=== PATIENT | male | born 1940 | race Caucasian/White ===

== ENCOUNTER → 2016-12-04 | Outpatient (REF) | payer MEDICARE ==
[2016-12-06 14:34] LABS: PSA TOTAL 1.9 ng/mL (0.0-4.0)
== END ==
LOC: M LABDRAW1 17:02
PROVIDERS: ATTEND Urology
DX: R97.20 Elevated prostate specific antigen [PSA] (principal)

== ENCOUNTER → 2017-12-24 | Outpatient (CLI) | payer MEDICARE ==
[2017-12-24 19:49] LABS: PROSTATIC SPECIFIC AG MONITOR 2.24 NG/ML (< 4.0)
== END ==
LOC: M WUC 11:57
DX: R97.20 Elevated prostate specific antigen [PSA] (principal)
CPT/HCPCS: 84153

== ENCOUNTER → 2018-01-13 | Outpatient (CLI) | payer MEDICARE | LOC: M SMT 11:05 | DX: N50.9 Disorder of male genital organs, unspecified (principal) | CPT/HCPCS: 76870 ==

== ENCOUNTER 2018-03-15 05:54 | Day surgery (SDC) | payer MEDICARE ==
[2018-03-15] MEDS: LR 1,000 ML IV (06:30)
[2018-03-15] MEDS ORDERED: PROPOFOL 200 MG/20 ML VIAL As Ordered (07:07)
[2018-03-15] MEDS ORDERED: LIDOCAINE 2% INJ 100 MG/5 ML SDV (FOR ANES.) As Ordered (07:07)
[2018-03-15] MEDS ORDERED: MIDAZOLAM INJ 2 MG/2 ML VIAL (J2250) As Ordered (07:08)
[2018-03-15] MEDS ORDERED: fentaNYL 100 MCG/2 ML INJECTION (J3010) As Ordered (07:08)
[2018-03-15] MEDS: BUPIVACAINE HCL 0.25% 30 ML VIAL As Ordered (07:52)
[2018-03-15] MEDS: BACITRACIN OINT 30GM As Ordered (07:52)
[2018-03-15] MEDS: LIDOCAINE 1% SDV INJ 30 ML VIAL As Ordered (07:52)
[2018-03-15] MEDS ORDERED: ePHEDrine SULFATE 25 MG/5 ML(5MG/ML) SYRINGE As Ordered (08:00)
[2018-03-15] MEDS ORDERED: fentaNYL 100 MCG/2 ML INJECTION (J3010) IV (09:30)
[2018-03-15] MEDS ORDERED: NORCO, ANEXSIA 5/325MG TABLET (HYDROcodone/ACETAMINOPHEN) PO (09:30)
[2018-03-15] MEDS ORDERED: LR 1,000 ML IV (09:30)
[2018-03-15] MEDS ORDERED: PERCOCET 5MG/325MG TAB PO (09:30)
[2018-03-15] MEDS ORDERED: ONDANSETRON 4MG/2ML VIAL (J2405) IV (09:30)
[2018-03-15] MEDS: PERCOCET 5MG/325MG TAB PO (10:32)
== END 2018-03-15 11:43 | disposition home or self-care (01) ==
LOC: M SDC 05:54
DX: N43.41 Spermatocele of epididymis, single (principal); E78.5 Hyperlipidemia, unspecified; K21.9 Gastro-esophageal reflux disease without esophagitis; K44.9 Diaphragmatic hernia without obstruction or gangrene; F32.9 Major depressive disorder, single episode, unspecified; Z87.891 Personal history of nicotine dependence; Z79.899 Other long term (current) drug therapy; Z88.0 Allergy status to penicillin; Z88.8 Allergy status to other drugs, medicaments and biological substances
CPT/HCPCS: 54840

== ENCOUNTER → 2018-09-15 | Outpatient (REF) | payer MEDICARE ==
[2018-09-15 13:10] LABS: CREATININE FOR GFR 0.94 MG/DL (0.70-1.30); GLOMERULAR FILTRATION RATE > 60.0 (>42)
[2018-09-15 13:10] LABS: BLOOD UREA NITROGEN 13 MG/DL (7-18)
== END ==
LOC: M LABDRAW1 12:38
DX: K59.00 Constipation, unspecified (principal); R63.4 Abnormal weight loss
CPT/HCPCS: 82565

== ENCOUNTER → 2018-09-21 | Outpatient (CLI) | payer MEDICARE ==
[2018-09-21 13:51] LABS: PROSTATIC SPECIFIC AG MONITOR 2.05 NG/ML (< 4.0)
== END ==
LOC: M SMT 10:36
DX: R10.9 Unspecified abdominal pain (principal); Z79.899 Other long term (current) drug therapy; Z87.898 Personal history of other specified conditions
CPT/HCPCS: 84153

== ENCOUNTER → 2018-10-28 | Outpatient (CLI) | payer MEDICARE ==
[2018-10-28 17:59] LABS: ANION GAP 4 MEQ/L (8-16); BLOOD UREA NITROGEN 13 MG/DL (7-18); CALCIUM LEVEL 8.9 MG/DL (8.8-10.2); CARBON DIOXIDE LEVEL 32 MEQ/L (21-32); CHLORIDE LEVEL 106 MEQ/L (98-107); CREATININE FOR GFR 1.12 MG/DL (0.70-1.30); GLOMERULAR FILTRATION RATE > 60.0 (>42); GLUCOSE, FASTING 92 MG/DL (70-100); POTASSIUM SERUM 5.2 MEQ/L (3.5-5.1); SODIUM LEVEL 142 MEQ/L (136-145)
== END ==
LOC: M SMT 14:12
DX: M89.9 Disorder of bone, unspecified (principal)
CPT/HCPCS: 80048

== ENCOUNTER → 2018-11-25 | Outpatient (CLI) | payer MEDICARE ==
[~2018-11-25] MED LIST: ASPI1TAB PO; ATOR1TAB21; BRIM0.2S13 OU; FLON1SPR; LINZ145C PO; LORA-243 PO; MENSTAB5 PO; PROHANCE 279.3MG/ML 15ML VIAL (A9576) As Ordered ONE; PROHANCE 279.3MG/ML 5ML VIAL (A9576) As Ordered ONE; SUDA30TA8 PO; TIMO0.5S29 OU; TIMO25OPD OU; TYLE500T78 PO; XALA0.007 OU
--- NOTE | 2018-11-26 09:04 | REP ---
MRI pelvis without and with IV gadolinium: History: Bone lesion. CT study abdomen and pelvis from September 15, 2018 describes a possible lytic lesion in the L4 vertebral body. Gadolinium enhancement dose: 17 ml of intravenous ProHance is administered. MR technique includes axial, coronal and sagittal T1 and T2-weighted scans with and without fat saturation. MRI findings: The radiolucent area on the CT study was in the inferior aspect of the L4 vertebral body posteriorly. Unfortunately, the pelvic MRI study just barely includes the inferior aspect of the L4 vertebral body on the coronal scans. There is no coverage of this region on sagittal or axial imaging sequences. On the coronal sequences, I do not see a destructive lesion. There is a small degenerative disc associated cyst, suggestive of a Schmorl's node centrally at the inferior endplate of L4. Cortical and medullary bone signal intensity are otherwise normal in the proximal femurs and bony pelvic ring and sacrum. There is no evidence to suggest skeletal metastasis in the imaged bony structures. There is osteoarthritic change of both hips with subcortical cyst formation in the superior acetabulum on the left and degenerative changes in the acetabular labral cartilage on the right. Prostate enlargement is again noted. This elevates the bladder base. Bladder ponce are smooth. Postcontrast enhanced images show no abnormal gadolinium enhancement. There is no evidence of adenopathy or mass. No abdominal wall defect is seen. Impression: Limited visualization of the area identified on CT study in the inferior aspect of the L4 vertebral body. Enlarged prostate. Osteoarthritis of the hips. Otherwise negative pelvic MRI study. If further evaluation of the L4 vertebral body is felt to be warranted, MRI lumbar spine could be performed. Electronically Signed by Satya Maradiaga MD 11/26/2018 10:16 A
== END ==
LOC: M RAD 16:01
PROVIDERS: ATTEND Nurse Practitioner Family
DX: M89.9 Disorder of bone, unspecified (principal); N40.0 Benign prostatic hyperplasia without lower urinary tract symptoms; M16.0 Bilateral primary osteoarthritis of hip
CPT/HCPCS: 72197; A9576

== ENCOUNTER → 2018-12-27 | Outpatient (REF) | payer MEDICARE ==
[~2018-12-27] MED LIST changes: -PROHANCE 279.3MG/ML 15ML VIAL (A9576) As Ordered ONE; -PROHANCE 279.3MG/ML 5ML VIAL (A9576) As Ordered ONE
[2018-12-27 18:18] LABS: BLOOD UREA NITROGEN 19 MG/DL (7-18); CALCIUM LEVEL 8.4 MG/DL (8.8-10.2); CARBON DIOXIDE LEVEL 33 MEQ/L (21-32); CHLORIDE LEVEL 106 MEQ/L (98-107); CREATININE FOR GFR 1.08 MG/DL (0.70-1.30); GLOMERULAR FILTRATION RATE > 60.0 (>42); GLUCOSE, FASTING 90 MG/DL (70-100); POTASSIUM SERUM 4.7 MEQ/L (3.5-5.1); SODIUM LEVEL 142 MEQ/L (136-145)
== END ==
LOC: M LABSMT 14:12
PROVIDERS: ATTEND Urology
DX: M89.9 Disorder of bone, unspecified (principal)

== ENCOUNTER → 2019-01-03 | Outpatient (CLI) | payer MEDICARE ==
[~2019-01-03] MED LIST changes: +PROHANCE 279.3MG/ML 15ML VIAL (A9576) As Ordered ONE; +PROHANCE 279.3MG/ML 5ML VIAL (A9576) As Ordered ONE
--- NOTE | 2019-01-03 13:23 | REP ---
MR LUMBAR SPINE WITHOUT CONTRAST: HISTORY: Bone lesion. COMPARISON: CT abdomen 09/15/2018. Please note contrast was not given due to MR machine malfunction. Decreased signal intensity on T2-weighted images is present in the lumbar intervertebral discs. The disc is decreased in height. These findings are consistent with disc degeneration. A diffuse disc bulge is present at the L1-2 level. There is minimal compression of the thecal sac. There is hypertrophy of the posterior articulating facets. The L1 nerves exit the neural foramina without compression. A diffuse disc bulge is present at the L2-3 level. There is hypertrophy of the ligamenta flava and posterior articulating facets. These findings produce minimal central canal stenosis. The L2 nerves exit the neural foramina without compression. A diffuse disc bulge is present at the L3-4 level. There is minimal compression of the thecal sac. There is hypertrophy of the posterior articulating facets. The L3 nerves exit the neural foramina without compression. A diffuse disc bulge is present at the L4-5 level. There is minimal compression of the thecal sac. There is hypertrophy of the posterior articulating facets. The L4 nerves exit the neural foramina without compression. A diffuse disc bulge is present at the L5-S1 level. There is minimal compression of the thecal sac. There is hypertrophy of the posterior articulating facets. There is compression of the L5 nerves in the neural foramina. The conus medullaris is normal in appearance terminating at the level of the L1 vertebral body. Schmorl's nodes are present in the L1-L5 vertebral bodies. Increased signal intensity on T2-weighted images is present in the endplates of the L3 through S1 vertebral bodies. This represents degenerative change. IMPRESSION: 1. Diffuse disc bulges at the L1-2 and L3-4 through L5-S1 levels with minimal thecal sac compression. There is compression of the L5 nerves in the neural foramina. 2. Minimal central canal stenosis at the L2-3 level secondary to disc bulge, ligamentous and facet hypertrophy. 3. There is no vertebral body bone lesion. Electronically Signed by Oskar Hunt MD 01/03/2019 01:33 P
== END ==
LOC: M RAD 10:20
PROVIDERS: ATTEND Urology
DX: M89.9 Disorder of bone, unspecified (principal)
CPT/HCPCS: 72148; A9576

== ENCOUNTER → 2019-02-14 | Outpatient (CLI) | payer MEDICARE ==
[~2019-02-14] MED LIST changes: -ASPI1TAB PO; +ASPI81TA26 PO; -ATOR1TAB21; +ATOR1TAB21 PO; -PROHANCE 279.3MG/ML 15ML VIAL (A9576) As Ordered ONE; -PROHANCE 279.3MG/ML 5ML VIAL (A9576) As Ordered ONE; +TIMO0.2525 OU; -TIMO25OPD OU; +TRAZ25TA PO; +TUMS500C PO
--- NOTE | 2019-02-14 16:33 | ECGEPIP ---
Stationary ECG Study [facility] Test Date: 2019-02-14 Pat Name: FREDERICK PIEDRA Department: Room: - Gender: M Chief Embalmer: [facility] : 1940 Requested By: Saud Garcia Order Number: [id number] Reading MD: Joyce Marroquin Measurements Intervals [place] Rate: 55 P: 66 OK: 141 QRS: 65 QRSD: 92 T: 69 QT: 419 QTc: 402 Interpretive Statements SINUS BRADYCARDIA ST ELEVATION, PROBABLY EARLY REPOLARIZATION NO PRIOR BORDERLINE PEAK T WAVES V3-5 Electronically Signed On 02-14-2019 16:33:05 EDT by Joyce Marroquin
== END ==
LOC: M EKG 14:29
PROVIDERS: ATTEND Anesthesiology
DX: Z01.818 Encounter for other preprocedural examination (principal); R00.1 Bradycardia, unspecified

== ENCOUNTER 2019-02-18 07:12 | Day surgery (SDC) | payer MEDICARE ==
[~2019-02-18] VITALS: Ht 185.4 cm; Wt 79.8 kg
[~2019-02-18 07:12] MED LIST changes: +CLINDAMYCIN 600 MG in APPROPRIATE DILUENT 1 EA IV ONE; +LR 1,000 ML IV ONE
[2019-02-18] MEDS ORDERED: LIDOCAINE 2% INJ 100 MG/5 ML SDV (FOR ANES.) As Ordered ONE (08:07)
[2019-02-18] MEDS ORDERED: MIDAZOLAM INJ 2 MG/2 ML VIAL (J2250) As Ordered ONE (08:07)
[2019-02-18] MEDS ORDERED: PROPOFOL 200 MG/20 ML VIAL As Ordered ONE (08:07)
[2019-02-18] MEDS ORDERED: NEOSTIGMINE 10 MG/10 ML VIAL (J2710) As Ordered ONE (08:07)
[2019-02-18] MEDS ORDERED: dexameTHASONE 4 MG/ML 1ML VIAL (J1100) As Ordered ONE (08:07)
[2019-02-18] MEDS ORDERED: GLYCOPYRROLATE INJ 0.2 MG/ML 2 ML VIAL As Ordered ONE (08:07)
[2019-02-18] MEDS ORDERED: ROCURONIUM BROMIDE 50 MG/5 ML VIAL As Ordered ONE (08:07)
[2019-02-18] MEDS ORDERED: ONDANSETRON 4MG/2ML VIAL (J2405) As Ordered ONE (08:07)
[2019-02-18] MEDS ORDERED: fentaNYL 100 MCG/2 ML INJECTION (J3010) As Ordered ONE (08:07)
[2019-02-18] MEDS ORDERED: KETOROLAC 60 MG/2 ML VIAL (J1885) As Ordered ONE (08:16)
[2019-02-18] MEDS ORDERED: BUPIVACAINE/EPIN 0.25% 30 ML VIAL As Ordered ONE (09:46)
[2019-02-18] MEDS ORDERED: ePHEDrine SULFATE 25 MG/5 ML(5MG/ML) SYRINGE As Ordered ONE (10:30)
[2019-02-18] MEDS ORDERED: NORCO, ANEXSIA 5/325MG TABLET (HYDROcodone/ACETAMINOPHEN) PO PRN (12:00)
[2019-02-18] MEDS ORDERED: fentaNYL 100 MCG/2 ML INJECTION (J3010) IV PRN (12:00)
[2019-02-18] MEDS ORDERED: ONDANSETRON 4MG/2ML VIAL (J2405) IV PRN (12:00)
[2019-02-18] MEDS ORDERED: LR 1,000 ML IV SCH (12:00)
[2019-02-18] MEDS ORDERED: PERCOCET 5MG/325MG TAB PO PRN (12:00)
--- NOTE | 2019-02-18 15:01 | RO ---
DATE OF PROCEDURE: 02/18/2019 PREOPERATIVE DIAGNOSIS: Right inguinal hernia. POSTOPERATIVE DIAGNOSIS: Right inguinal hernia. PROCEDURE: Robotic repair of right inguinal hernia. SURGEON: Vadim Jade DO VALUE STREAM COACH: STEVE Cason ANESTHESIA: General. ESTIMATED BLOOD LOSS: 5 mL. COMPLICATIONS: None. INDICATIONS FOR PROCEDURE: 78-year-old male who presents with right groin pain, found to have right inguinal hernia. Recommendation was to proceed with robotic repair. Risks and benefits of procedure not limited to, but including bleeding, infection, hernia formation, hernia recurrence, damage to surrounding structures, need for further surgery, were discussed in detail with the patient. Informed consent was obtained and procedure was planned. PROCEDURE: Patient was brought back to operating room 7. After sufficient sedation, the abdomen was sterilely prepped and draped. Next, a time out was done to confirm proper patient procedure. Following that stab incision made in left lower quadrant, Veress needle was inserted, and the abdomen was insufflated to 15 mmHg. Once the abdomen was insufflated, an 8 mm supraumbilical midline incision was made and an 8 mm OptiView port was used to gain access into the abdomen. Once the abdomen was entered, two more ports were placed, one in the right midabdomen and one in the left midabdomen. The robot was then connected to the ports and targeted to the pelvis. Once targeting was completed the other instruments were placed. Then from the console curved incision was made in the right lower quadrant into the peritoneum. The preperitoneal space was then dissected free medially and laterally. Once that was completed, I dissected circumferentially around the hernia sac, dissecting it free from all of the cord structures. Once it was completely freed up, I continued the dissection medially until the pubic symphysis could easily be identified. Once this was all complete, a Bard 3DMax medium mesh was placed in the right lower quadrant, sutured to the pubic symphysis using #2-0 Vicryl suture. The mesh was then laid out flat inside of the pocket. The peritoneum was closed over top of the mesh with a running #2-0 V-Loc suture thus ending procedure. The abdomen was then desufflated. Skin incisions were closed #4-0 Vicryl subcuticular sutures. The abdomen was cleaned and dried. Steri-Strips, 4x4 and tape were applied, thus ending the procedure.
[2019-02-18] MEDS ORDERED: ACETAMINOPHEN 500 MG TAB As Ordered ONE (19:49)
[2019-02-18] MEDS ORDERED: ACETAMINOPHEN 500 MG TAB PO SCH (20:00)
[2019-02-18 23:25] VITALS: BP 165/73
== END 2019-02-18 23:30 | disposition home or self-care (01) ==
LOC: M SDC 07:12
PROVIDERS: ATTEND Surgery
DX: K40.90 Unilateral inguinal hernia, without obstruction or gangrene, not specified as recurrent (principal); E78.5 Hyperlipidemia, unspecified; M10.9 Gout, unspecified; K21.9 Gastro-esophageal reflux disease without esophagitis; Z87.891 Personal history of nicotine dependence; F32.9 Major depressive disorder, single episode, unspecified; Z88.0 Allergy status to penicillin; Z79.82 Long term (current) use of aspirin; Z79.899 Other long term (current) drug therapy
CPT/HCPCS: 49650; C1781; J1100; J1885; J2250; J2405; J2710; J3010

== ENCOUNTER → 2019-09-01 | Outpatient (CLI) | payer MEDICARE ==
[~2019-09-01] MED LIST changes: -CLINDAMYCIN 600 MG in APPROPRIATE DILUENT 1 EA IV ONE; -LR 1,000 ML IV ONE; +TRAZ1TAB11 PO; -TRAZ25TA PO
--- NOTE | 2019-09-01 18:27 | REP ---
Examination Requested: Cookie Swallow Reason For Exam: Dysphasia The procedure was performed by DEANGELO Squires, under the direct supervision of Dr. Maradiaga. The procedure was performed with Agata Cantu from speech pathology present. 5 ml aliquots of thin, pudding, nectar, soft food, honey and pill consistency barium was administered. Severe penetration was observed with both thin and nectar-thick barium consistencies. With the pill consistency several maneuvers had to be attempted before it cleared completely. The detailed report of this examination will be provided by speech pathology. 7.1 minutes of fluoroscopy time was utilized for this procedure. Reviewed by DEANGELO Luther 09/01/2019 04:20 P Electronically Signed by Satya Maradiaga MD 09/01/2019 06:17 P
== END ==
LOC: M ST 14:41
PROVIDERS: ATTEND Otolaryngology
DX: R13.13 Dysphagia, pharyngeal phase (principal)

== ENCOUNTER → 2019-09-01 | Outpatient (CLI) | payer MEDICARE | LOC: M SMT 13:07 | PROVIDERS: ATTEND Urology | DX: Z87.898 Personal history of other specified conditions (principal); Z85.46 Personal history of malignant neoplasm of prostate; R97.20 Elevated prostate specific antigen [PSA] ==

== ENCOUNTER → 2019-09-15 | Outpatient (RCR) | payer MEDICARE | END | disposition home or self-care (01) | LOC: M ST 14:25 | PROVIDERS: ATTEND Otolaryngology | DX: R13.13 Dysphagia, pharyngeal phase (principal) ==

== ENCOUNTER 2019-11-03 10:22 | Outpatient (RCR) | payer MEDICARE | END 2019-11-15 | LOC: M ST 10:22 | PROVIDERS: ATTEND Otolaryngology | DX: R13.13 Dysphagia, pharyngeal phase (principal) ==

== ENCOUNTER 2019-12-14 13:11 | Outpatient (RCR) | payer MEDICARE | END 2019-12-16 | LOC: M ST 13:11 | PROVIDERS: ATTEND Otolaryngology | DX: R13.13 Dysphagia, pharyngeal phase (principal) ==

== ENCOUNTER 2019-12-28 13:28 | Outpatient (RCR) | payer MEDICARE | END 2020-01-14 | LOC: M ST 13:28 | PROVIDERS: ATTEND Otolaryngology | DX: R13.13 Dysphagia, pharyngeal phase (principal) ==

== ENCOUNTER 2020-01-18 08:33 | Emergency (ER) | payer MEDICARE ==
[~2020-01-18] VITALS: Ht 185.4 cm; Wt 80.3 kg
[2020-01-18] MEDS ORDERED: OMEP-221 PO (08:47)
[2020-01-18 10:44] LABS: BASO % 0.3 % (0.0-1.0); EOS # 0.2 10^3/uL (0.0-0.5); EOS % 1.4 % (0.0-3.0); HEMATOCRIT 41.5 % (42.0-52.0); HEMOGLOBIN 14.5 g/dl (13.5-17.5); LYMPH # 1.5 10^3/uL (1.5-5.0); LYMPH % 13.1 % (24.0-44.0); MEAN CORPUSCULAR HEMOGLOBIN 32.1 pg (27.0-33.0); MEAN CORPUSCULAR HGB CONC 34.9 g/dl (32.0-36.5); MEAN CORPUSCULAR VOLUME 91.8 fl (80.0-96.0); MONO # 0.9 10^3/uL (0.0-0.8); MONO % 7.8 % (0.0-5.0); NEUTROPHILS % 77.1 % (36.0-66.0); PLATELET COUNT, AUTOMATED 155 10^3/uL (150-450); RED BLOOD COUNT 4.52 10^6/uL (4.30-6.10); WHITE BLOOD COUNT 11.6 10^3/uL (4.0-10.0)
--- NOTE | 2020-01-18 11:08 | REP ---
KUB ABDOMEN AND PELVIS: Two KUB films of abdomen and pelvis performed. Moderate amount of air and fecal material is seen throughout the colon. There is also some air in nondilated small bowel in the mid abdomen. There are moderate degenerative changes of the spine. There are degenerative changes of the hips. Electronically Signed by Vadim Baird MD 01/18/2020 03:57 P
[2020-01-18 11:13] LABS: ALBUMIN 4.5 GM/DL (3.2-5.2); ALT/SGPT 37 U/L (12-78); BILIRUBIN,DIRECT 0.3 MG/DL (0.0-0.2); BILIRUBIN,TOTAL 1.1 MG/DL (0.2-1.0); BLOOD UREA NITROGEN 14 MG/DL (7-18); CALCIUM LEVEL 9.7 MG/DL (8.8-10.2); CARBON DIOXIDE LEVEL 32 MEQ/L (21-32); CHLORIDE LEVEL 103 MEQ/L (98-107); GLOMERULAR FILTRATION RATE > 60.0 (>42); GLUCOSE, FASTING 94 MG/DL (70-100); LIPASE 87 U/L (73-393); POTASSIUM SERUM 4.6 MEQ/L (3.5-5.1); SODIUM LEVEL 140 MEQ/L (136-145); TOTAL PROTEIN 7.5 GM/DL (6.4-8.2)
[2020-01-18] MEDS ORDERED: GLYCERIN ADULT SUPP PR ONE (11:15)
[2020-01-18] MEDS ORDERED: MAGNESIUM CITRATE 300 ML BTL PO ONE (12:00)
[2020-01-18 14:26] VITALS: BP 139/84
[2020-01-18] MEDS ORDERED: COLA100C5 PO (14:50)
== END 2020-01-18 15:07 | disposition home or self-care (01) ==
LOC: M ED 08:33
DX: K59.00 Constipation, unspecified (principal); E78.5 Hyperlipidemia, unspecified; K21.9 Gastro-esophageal reflux disease without esophagitis; J30.89 Other allergic rhinitis; Z85.828 Personal history of other malignant neoplasm of skin; Z79.82 Long term (current) use of aspirin; Z79.899 Other long term (current) drug therapy; Z88.0 Allergy status to penicillin; Z88.8 Allergy status to other drugs, medicaments and biological substances

== ENCOUNTER → 2020-08-08 | Outpatient (REF) | payer MEDICARE ==
[~2020-08-08] MED LIST changes: +COLA100C5 PO; +OMEP-221 PO
== END ==
LOC: M LAB REF 19:09
PROVIDERS: ATTEND Physician Assistant
DX: C44.712 Basal cell carcinoma of skin of right lower limb, including hip (principal)
CPT/HCPCS: 11102; 17000; 17003; 88305; G0463

== ENCOUNTER → 2020-10-08 | Outpatient (REF) | payer MEDICARE | LOC: M LAB REF 16:58 | PROVIDERS: ATTEND Physician Assistant | DX: I87.2 Venous insufficiency (chronic) (peripheral) (principal) ==

== ENCOUNTER → 2021-02-06 | Outpatient (REF) | payer MEDICARE | LOC: M LAB REF 19:24 | PROVIDERS: ATTEND Physician Assistant | DX: C44.329 Squamous cell carcinoma of skin of other parts of face (principal) ==

== ENCOUNTER → 2021-08-14 | Outpatient (REF) | payer MEDICARE | LOC: M LAB REF 18:15 | PROVIDERS: ATTEND Physician Assistant | DX: L82.1 Other seborrheic keratosis (principal); D48.5 Neoplasm of uncertain behavior of skin | CPT/HCPCS: 11102; 17000; 17003; 88305; G0463 ==